=== PATIENT | male | born 1960 | race Two or more races ===

== ENCOUNTER 2021-11-29 15:51 | Emergency (ER) | payer SELFPAY ==
[2021-11-29 16:05] VITALS: RESP 18; TEMP 98.5; BMI 18.3
[2021-11-29] MEDS ORDERED: ALBUTEROL SO4 2.5/IPRATROPIUM 0.5 INH SOL 3 ML VIAL.NEB. NEB ONE ×2 (17:35→17:36)
[2021-11-29 17:36] LABS: BASO % 0.9 % (0-2.0); EOS % 2.2 % (0-4.5); HEMATOCRIT 42.7 % (35.4-49); HEMOGLOBIN 14.3 GM/dL (11.7-16.9); LYMPH % 19.7 % (8-40); MCH 30.5 pg (25.7-33.7); MCHC 33.4 g/dl (32.0-35.9); MEAN CELL VOLUME 91.2 fl (80-96); MONO % 6.1 % (3.8-10.2); NEUT % 71.1 % (42.8-82.8); PLATELET COUNT 195 10^3/uL (134-434); RBC 4.68 M/mm3 (4.00-5.60); RDW 13.9 % (11.9-15.9); WHITE BLOOD COUNT 9.9 K/mm3 (4.0-10.0)
[2021-11-29 17:40] LABS: INR 1.18 (0.83-1.09); PROTHROMBIN TIME (PATIENT) 13.6 SEC (9.7-13.0)
[2021-11-29 17:43] LABS: ACTIVATED PTT 33.4 SECONDS (25.2-36.5)
[2021-11-29 17:54] LABS: ALBUMIN 4.5 g/dl (3.4-5.0); BLOOD UREA NITROGEN 12.9 mg/dL (7-18)
[2021-11-29 17:57] LABS: CREATININE 0.8 mg/dL (0.55-1.3)
[2021-11-29 17:58] LABS: BILIRUBIN,TOTAL 1.4 mg/dL (0.2-1)
[2021-11-29] MEDS ORDERED: SODIUM CHLORIDE 0.9% 500 ML INFUS.BAG IV ONE (18:00)
[2021-11-29] MEDS ORDERED: predniSONE 20 MG TABLET (UD) PO ONE (18:50)
[2021-11-29] MEDS ORDERED: predniSONE 20 MG TABLET (UD) ONE (18:54)
[2021-11-29 20:53] VITALS: BP 119/68; PULSE 62
== END 2021-11-29 20:56 | disposition home or self-care (01) ==
LOC: JER 15:51
PROC: 3E0F7GC Introduction of Other Therapeutic Substance into Respiratory Tract, Via Natural or Artificial Opening (ICD-10-PCS; principal; 2021-11-29)
DX: J44.1 Chronic obstructive pulmonary disease with (acute) exacerbation (principal)
CPT/HCPCS: 0241U-QW; 36415; 71046-TC-FY; 71275-TC; 80053; 84439; 84443; 84484; 85025; 85610; 85730; 93005; 93010; 99285-25; Q9967